=== PATIENT | male | born 2000 | race Caucasian/White ===

== ENCOUNTER 2019-04-06 06:56 | Day surgery (SDC) | payer OTHER, SELFPAY ==
[2019-03-27 08:45] VITALS: BMI 20.3
--- NOTE | 2019-03-27 09:29 | HP_ITS ---
Intake Vital Signs 03/27/19 Height 6 ft 03/27/19 Weight: 150 lb 03/27/19 Body Mass Index (BMI) 20.3 03/27/19 Blood Pressure 110/70 03/27/19 Blood Pressure Location Rt brachial 03/27/19 Blood Pressure Position Sitting 03/27/19 Respiratory Rate 14 03/27/19 Pulse Rate 66 03/27/19 Pulse Source Monitor 03/27/19 Temperature 98.1 F 03/27/19 Temperature Source Oral 03/27/19 Pulse Ox 100 03/27/19 Oxygen Delivery Method room air Intake Visit Reasons: Pilonidal Cyst Site Administrator Required: No Is patient in pain?: No (some tenderness) Allergies No Known Allergies Allergy (Verified 03/27/19 08:46) Medications NK 03/27/19 [History Confirmed 03/27/19] PFSH Medical History Pilonidal cyst (Acute) Surgical History No significant past surgical history (Acute) Family History Mother Asthma Father Diabetes Social History Smoking Status: Never smoker second hand exposure: No alcohol intake: never substance use type: does not use caffeine: Yes what type of physical activity do you participate in: none frequency: does not exercise HPI HPI HPI: KEYONNA HUANG, is a 18 M who presents to the office today for HPI HPI Surgical H&P: Yes HPI: KEYONNA HUANG, is a 18 M who presents to the office today for pilonidal cyst. Patient reports that it drains off and on. It currently is not draining or causing him much discomfort. ROS General General: No weight change or fatigue Cardio Cardiovascular: No murmur, pacemaker, heart disease, atrial fibrillation, high blood pressure, heart attack, heart stent, palpitations, shortness of breat with exertion or chest pain Psych Psychiatric: No depression or anxiety Resp Respiratory: No shortness of breath, No sleep apnea, No cough, No COPD, No asthma, No emphysema, No wheezing Gastro Gastrointestinal: No abdominal pain, No nausea or vomiting, No diarrhea, No constipation, No blood in stool, No acid reflux, No hemorrhoids, No ulcers, No gallbladder problem, No black,tarry stools Farrukh Hematologic: No blood thinners Exam Const General: cooperative Orientation: alert, oriented x3 Resp Effort & Inspection: normal respiratory effort Auscultation: clear to auscultation bilaterally Cardio Rate: regular rate Rhythm: regular rhythm Heart Sounds: no murmurs GI Inspection: non-distended Palpation: soft, nontender Other: On perianal exam the patient does have a sinus tract in the superior right gluteus. There is no inflammation or drainage. Assessment & Plan Problems 1. Pilonidal cyst L05. Plan Patient has a pilonidal cyst with sinus tract. He would like this excised. I explained that I would do this in the operating room under Versed and fentanyl as well as local anesthesia. I think this would be easily excised as well as being able to close the incision. I explained the risks of bleeding and infection. The patient would like to proceed. Vinay Mauricio MD Pager: [facility] [address] [place] [address], [address] [place] [address] Office: Coding Level of Care Code Off vis,est,level 3 Diagnoses Pilonidal cyst L05.03/27/19 0929 <Electronically signed by Vinay montgomery MD> Date _ Vinay Mauricio MD I have re-examined the patient. There are no clinical changes since date of exam.
[2019-04-06 07:13] VITALS: BP 113/60; PULSE 61; RESP 16; TEMP 36.4; O2SAT 100; BMI 20.8
--- NOTE | 2019-04-06 08:45 | PILCYST_PTH ---
PATIENT: KEYONNA HUANG Jr. LOC: [facility] U#:[id number] AGE/SX: 18/M ROOM: RE04/06/[address]: Dr. Vinay Mauricio MD : 2000 BED: DIS: 04/06/2019 SPEC #: [id number] RECD: 04/06/19 15:07 STATUS: LLUVIA JEANETTE #: [id number] CONSTANTINE: 04/06/19 08:[address]: Vinay Mauricio DEPT: SURGICAL PATHOLOGY RECD BY: Stephane Olivera ENTERED: 04/07/19 08:06 SP TYPE: Pilonidal OTHR DR: Dr. Alex Ortiz MD Tissues: PILONIDAL TISSUE Procedures: Surgery Specimen Level III HEADER OPERATION: Excision pilonidal cyst PRE-OP DIAGNOSIS: Pilonidal cyst TISSUE SUBMITTED: Pilonidal cyst MICROSCOPIC DIAGNOSIS Pilonidal cyst, excision: Pilonidal cyst with acute inflammation and chronic hemorrhage. CE:rg 6/24/19 MICROSCOPIC DESCRIPTION Slides are reviewed. GROSS DESCRIPTION Received in fixative is one container labeled with the patient's name and designated pilonidal cyst. The specimen consists of a portion of kellogg skin and underlying soft tissue measuring 1.5 cm in length x 0.5 cm in width and excised to a depth of 0.8 cm. The specimen is serially cross-sectioned and totally submitted in one cassette. / CE:lucila 04/07/19 TC: CPT: 99547
[2019-04-06] MEDS: Cefazolin 2 GM in 0.9% Normal Saline 100 ML IV (08:54)
[2019-04-06] MEDS: Bupivacaine Mpf 0.5% 30 ML VIAL (09:00)
[2019-04-06 09:20] VITALS: BP 102/53; BP 113/60; PULSE 61; RESP 16; TEMP 36.6; O2SAT 97
[2019-04-06 09:25] VITALS: BP 113/60; BP 98/61; PULSE 65; RESP 18; O2SAT 99
[2019-04-06 09:30] VITALS: BP 112/54; BP 113/60; PULSE 63; RESP 18; O2SAT 96
--- NOTE | 2019-04-06 09:32 | DCINST_ITS ---
You will use the following diet at home:: No restrictions, Regular Discharge Activity: No Restrictions, May Shower - tomorrow May shower in (days): 1 Call your doctor if your incision/area has: Continuous Slow Oozing, Sudden Increased Bleeding, Increased Pain/ Swelling, Increased Redness, Foul Smelling Discharge, Swelling at the incision site Call your doctor if you observe: Fever of 101 or Higher Change Dressing in (Days):: 1 - change as needed Cleanse incision/area with: Soap & Water Allergies/Adverse Reactions: Allergies No Known Allergies Allergy (Verified 03/31/19 14:07) Medications to take at Discharge Hydrocodone/Acetaminophen [Hydrocodon-Acetaminophen 5-325] 1 ea PO Q6H PRN PRN 5 Days #20 tab 04/06/19 The following prescriptions were given: Hydrocodone/Acetaminophen [Hydrocodon-Acetaminophen 5-325] 1 ea PO Q6H PRN PRN 5 Days #20 tab PRN Reason: Pain Prescription Printed Primary Care Physician: Shan Ortiz MD [Primary Care Provider] - Test Results: Test results from this visit will be discussed in further detail at your follow- up appointment, if applicable. Please Follow Up With: Vinay Mauricio MD When: Please call to schedule follow up appointment for April 17. [phone]
[2019-04-06 09:35] VITALS: BP 108/62; BP 113/60; PULSE 55; RESP 18; TEMP 36.3; O2SAT 100
[2019-04-06 10:08] VITALS: BP 113/60
--- NOTE | 2019-04-06 13:32 | PCM.OPRPT ---
Problem List (1) Pilonidal cyst Status: Acute Report of Operation Date of Procedure: 04/06/19 Pre-Operative Diagnosis: Pilonidal cyst Post-Operative Diagnosis: Same Surgery/Procedure Performed:: Excision of pilonidal cyst Specimen's removed: Pilonidal cyst Description of Procedure: The patient was brought back to the operating room and turned in prone position. Next MAC anesthesia was induced. The patient's sacral area was prepped with Betadine after being trimmed of hair. Using a marker an incision was marked and injected with local anesthetic. Scalpel was used to then make an elliptical incision around the sinus. Using electrocautery the subcutaneous tissue was dissected free until healthy fat was reached on all sides. The cyst was sent for pathology. Next the cavity was irrigated and hemostasis was obtained using electrocautery. The skin was closed with interrupted 3-0 Vicryl sutures and external interrupted 3-0 nylon sutures. Pressure dressing was applied. Patient tolerated the procedure well. - Admit VTE Documentation VTE Mechan Device Prophylaxis: SCD's
== END 2019-04-06 10:20 | disposition home or self-care (01) ==
LOC: PAT 07:00 → AC 07:01
PROVIDERS: Family Provider Family Medicine; PCP Family Medicine; Referring Provider Surgery; Visit Provider Surgery
PROC: (CPT 11770; principal; 2019-04-06 08:30)
DX: L05.91 Pilonidal cyst without abscess (principal)
CPT/HCPCS: 11770; 88304; J7120; J2405

== ENCOUNTER → 2022-10-28 | Outpatient (CLI) | payer OTHER, SELFPAY ==
[2022-10-28 17:52] LABS: Hematocrit 49.2 % (40-54); Hemoglobin 16.5 g/dL (13.0-16.5); Mean Corp Hgb Conc 33.5 g/dL (32-36); Mean Corpuscular Hgb 29.2 pg (27.0-32.0); Mean Corpuscular Volume 86.9 fL (80-94); Mean Platelet Vol. 11.5 fl (6.2-12.0); Platelet Count 191 K/mm3 (150-450); RBC Distribution Width CV 12.4 % (11.6-14.6); RBC Distribution Width SD 39.3 fl (35.1-43.9); Red Blood Count 5.66 M/mm3 (4.6-6.2); White Blood Count 10.6 K/mm3 (4.4-11.0)
[2022-10-28 18:38] LABS: Vitamin B12 417 pg/mL (211-911); Vitamin D,25 Hydroxy 27.2 ng/mL
[2022-10-28 18:44] LABS: ALB/GLOB Ratio 1.7 RATIO (0.9-2.4); AST(SGOT) 26 U/L (15-37); Alanine Aminotransfer ALT/SGPT 32 U/L (16-61); Alkaline Phosphatase 77 U/L (45-117); Anion Gap 8 (5-15); BUN 15 mg/dL (7-18); BUN/Creat Ratio 12.6 RATIO (10-20); Calcium,Total 9.8 mg/dL (8.5-10.1); Chloride 103 mmol/L (98-107); Cholesterol 182 mg/dL (200); Creatinine, Serum 1.19 mg/dL (0.70-1.30); EST Glomerular Filtration Rate 81 mL/min (>60); Est Glom Filt Rate - Afr Amer 98 mL/min (>60); Glucose 91 mg/dL (74-106); High Density Lipoprotein 87 mg/dL; Potassium 4.1 mmol/L (3.5-5.1); Sodium Level 138 mmol/L (136-145); Triglycerides 78 mg/dL; Very Low Density Lipoprotein 16 mg/dL (5-40)
== END | disposition home or self-care (01) ==
LOC: MFPLAB 16:50
PROVIDERS: PCP Family Medicine; Visit Provider Family Medicine
DX: R53.83 Other fatigue (principal); Z13.220 Encounter for screening for lipoid disorders
CPT/HCPCS: 36415; 80053; 80061; 82306; 82607; 84403; 84443; 85027